=== PATIENT | male | born 1980 | race Asian ===

== ENCOUNTER 2017-02-27 07:40 | Emergency (ER) | payer OTHER ==
[~2017-02-27] VITALS: Ht 172.7 cm; Wt 61.7 kg
[2017-02-27 07:54] VITALS: BP 151/106; PULSE 77; RESP 15; TEMP 96.8; O2SAT 97
--- NOTE | 2017-02-27 08:00 | NUR ---
Pt to bed 7
--- NOTE | 2017-02-27 08:01 | NUR ---
Stable condition, states, "I got something in my eye yesterday." Patient denies any known mechanism of injury. Patient denies any change in vision. Pupils PERRLA. Left eye swollen and red, patient states eye is watery. Patient denies any pain. No other complaints or injury per patient noted.
--- NOTE | 2017-02-27 08:14 | NUR ---
Dr. Granado at bedside, examining patient's eye with wood and slit lamp (administered medication to patient's eye prior to).
[2017-02-27 08:33] VITALS: BP 150/90; PULSE 77; RESP 16; TEMP 97; O2SAT 97
--- NOTE | 2017-02-27 08:33 | NUR ---
Patient given written and verbal discharge instructions and verbalizes understanding. ER MD discussed with patient the results and treatment provided. Patient in stable condition. ID armband removed. Rx of Ocuflox and Keflex given. Patient educated on pain management and to follow up with PMD. Pain Scale 0/10. Opportunity for questions provided and answered.
== END 2017-02-27 08:33 | disposition home or self-care (01) ==
LOC: SED 07:40
DX: H00.014 Hordeolum externum left upper eyelid (principal); Z88.8 Allergy status to other drugs, medicaments and biological substances
CPT/HCPCS: 99283

== ENCOUNTER 2017-08-22 20:53 | Emergency (ER) | payer OTHER ==
[~2017-08-22] VITALS: Ht 167.6 cm; Wt 60.3 kg
[2017-08-22 21:04] VITALS: BP_SYST 159
[2017-08-22] MEDS: LIDOCAINE 1% 10 MG/ML, 20 ML MDV INJ ONE (21:55)
[2017-08-22 22:10] VITALS: BP_SYST 156
== END 2017-08-22 22:10 | disposition home or self-care (01) ==
LOC: SED 20:53
DX: L02.611 Cutaneous abscess of right foot (principal)
CPT/HCPCS: 10060; 73630; 99284; J2001